=== PATIENT | male | born 1980 | race Caucasian/White ===

== ENCOUNTER 2019-08-16 13:36 | Outpatient (CLI) | payer OTHER ==
--- NOTE | 2019-08-16 17:00 | CARDIAC PROCEDURE NOTE ---
DATE OF SERVICE: 08/16/2019 Physician: Lamar Brandon MD, [facility] INDICATION: Chest pain. CARDIAC RISK FACTORS: Male gender, family history of heart disease at an early age, elevated cholesterol, obesity, hypertension. DESCRIPTION OF PROCEDURE: After signing informed consent, patient underwent a Eben-protocol treadmill stress test. No imaging was ordered with this test. RESTING HEART RATE: 100. PEAK HEART RATE 162 (90% predicted maximum heart rate for age). RESTING BLOOD PRESSURE: 142/90. PEAK BLOOD PRESSURE: 198/60. Patient exercised for 8 minutes and 40 seconds on a Eben-protocol treadmill stress test. He achieved a peak heart rate of 162 (90% predicted maximum heart rate for age) and 10.2 METS. Patient developed mild to moderate shortness of breath and rated his perceived exertion at 13/20 on a Eboni scale, at peak. He described no chest discomfort during the entire test. Oxygen saturation was 94- 98% throughout the entire test, on room air. RESTING EKG: Normal sinus rhythm, poor R-wave progression in V1-V4 precordial leads. EKG AT PEAK: No new ST segment or T-wave changes. Heart rate was slow to recover, at 4 minutes aftyer exercise, he was still tachycardic at a heart rate of 113. SUMMARY 1. Abnormal resting EKG. 2. Fair exercise tolerance. 3. Abnormal heart rate during the entire test: Tachycardic at rest and slow recovery of heart rate after exercise. 4. No ischemic changes by EKG criteria with exercise stress testing, at a good level of exertion. 5. No imaging was ordered with this test (to evaluate the abnormal resting EKG). 6. This patient's cardiac risk is Moderate. 7. Consider repeat stress testing using imaging (nuclear or Echo) to evaluate for ischemia, if clinically indicated. cc: Abhay Bowsre TD: 08/16/2019 16:07 GATO
== END 2019-08-16 13:37 | disposition home or self-care (01) ==
LOC: DI 13:36
DX: R07.9 Chest pain, unspecified (principal)

== ENCOUNTER 2021-10-22 10:58 | Outpatient (CLI) | payer OTHER ==
[2021-10-22 11:47] VITALS: BP 134/84
--- NOTE | 2021-10-22 11:47 | SLEEP CARE CONSULTATION ---
Information from patient questionnaire entered by Ariadne Clay MA. I have reviewed and concur with the information entered by Ariadne Clay MA. This document represents the service I personally performed and the decisions made by me, Vanessa Sheffield ARNP. History of Present Illness Service Date and Time: 10/22/2021 1058 Reason for Visit: New patient Chief Complaint: reports: Unrefreshed sleep (eugenia when sleeping on his back), Snoring, Observed pauses in breathing, Frequent awakenings at night Date of Onset: multiple years Usual bedtime: 2200 Time it takes to fall asleep: 30-45 minutes Snores at night: Yes Observed to quit breathing while asleep: Yes Sleeps alone due to snoring: No Number of times waking at night: 5-6 Reasons for waking at night: reports: Snoring, Pain, Other (shoulder site pain) Toss, Turn, or Twitch while sleeping: Yes Recalls having dreams: Yes Usually gets out of bed at: 0700; weekends 730-0800 Feels refreshed in the morning: No Morning headache: No Sleepy or fatigued during the day: Yes Ever fallen asleep while driving: Yes (drowsy driving, no accidents) Takes day naps: No Dreams during day naps: No Prior sleep studies: No Additional HPI information: I had the pleasure of seeing RYAN ROJAS today regarding the possibility of him having a sleep disorder. His current complaints are snoring, observed pauses in breathing, frequent night awakenings and unrefreshed sleep. Patient states he is here because his has been complaining for years of his snoring and times that he has pauses in breathing when he sleeps. He is also had times where she heard gasping while he was sleeping. He visited with his primary doctor who sent him here for evaluation. He states he does wake up frequently for many reasons during the night. He normally sleeps on his sides but would like to sleep on his back. He states he cannot sleep on his back because he wakes up every 10 minutes choking and snoring. He states now he is having more back pain from sl eeping on his side and he would like to sleep on his back. He was lifting weights as a teenager and crashed some vertebrae for which he had surgery. But as he is getting older he is having more pain in his back. He states he does not have high blood pressure but it has been borderline high for the last couple of years. He is not currently on any medication for high blood pressure. He comes from a family of snores but no diagnosed sleep disordered breathing. 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 Patient is and lives in [place]. Have you smoked in the past 12 months: No Alcohol use: Yes Alcohol amount and frequency: 3 x weekly Caffeine use: Yes Caffeine amount and frequency: 3 x weekly Family History Family history of sleep disordered breathing: No Family Hx Sleep Apnea: Mother: Snoring, Father: Snoring, Sibling: Snoring Allergies and Home Medications Known drug allergies: No Drug allergies reviewed: Yes (NKDA) Home medication list reviewed: Yes Allergy and home medication list: Simvastatin 40 mg daily Advil PM, prn (few times a week to help stay asleep) Review of Systems Cardiovascular: denies: high blood pressure Gastrointestinal: reports: diarrhea. denies: heartburn Neurological: denies: headaches Psychiatric: reports: depression Ear/Nose/Throat: reports: injury to nose (possible nose fracture when kid), wisdom teeth removed. denies: tonsillectomy Musculoskeletal: reports: neck pain, back pain Immunologic: denies: allergies to food or environment Physical Exam Vital signs obtained and entered by: MILE STEWART Blood Pressure: 134/84 (left) Cuff size: wrist Heart Rate: 67 O2 Saturation: 98 (with mask) Height: 6 ft 1 in Weight: 270 lb (with boots and uniform) Body Mass Index: 35.6 BMI Classification: Obese Neck circumference: 18 (inches) Mouth and throat: narrow oropharynx Soft palate: long Hard palate: normal Uvula: normal Uvula visualization: 25% Mallampati Class III Tonsils: small Neck: normal w/o lymphadenopathy or thyromegaly Heart: regular rate and rhythm Lungs: clear bilaterally Impression and Plan 1. Suspected Obstructive Sleep Apnea-Hypopnea Syndrome, as suggested by a history of loud and irregular snoring, observed cessation of breath while asleep, gasping or choking in sleep, frequent awakening during the night, and unrefreshed sleep. Narrow oropharynx and obesity are common predisposing factors for obstructive sleep apnea-hypopnea syndrome. I recommend proceeding to polysomnography to confirm the diagnosis and to assess severity. If the patient has significant sleep disordered breathing, a manual CPAP titration study will also be performed to find the optimal treatment pressure. I informed the patient of what the sleep studies involve and after some discussion, obtained agreement to proceed. The pathophysiology of obstructive sleep apnea-hypopnea syndrome was discussed with the patient and health risks of cardiovascular and cerebrovascular disease if not treated. AAS brochure for obstructive sleep apnea-hypopnea syndrome given and reviewed. 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 Patient agreed to plan. * Schedule polysomnography +- manual CPAP titration study and return in 1-2 weeks after the study to discuss result and initiate therapy. * Avoid long distance driving or driving when feeling sleepy. * Avoid alcohol, sedative and muscle relaxant around bedtime. * Attempt to lose weight. * Review instructions provided by trained office staff on how to prepare for the sleep study. * Return for follow-up after sleep study completed. Counseling Topics: Weight loss health impact Visit Type: In Office Time Spent with Patient (minutes): 30 Provider Statement: I spent 100% of the Face to Face Visit with the patient with greater than 50% spent counseling the patient and coordination of care.
== END 2021-10-22 10:59 | disposition home or self-care (01) ==
LOC: SC 10:58
PROVIDERS: ATTEND Nurse Practitioner Family
DX: R06.83 Snoring (principal); R06.81 Apnea, not elsewhere classified; G47.8 Other sleep disorders; E66.9 Obesity, unspecified; Z68.35 Body mass index [BMI] 35.0-35.9, adult
CPT/HCPCS: 99203; 99212

== ENCOUNTER 2021-11-21 09:19 | Outpatient (CLI) | payer OTHER | END 2021-11-21 09:20 | disposition home or self-care (01) | LOC: SC 09:19 | PROVIDERS: ATTEND Nurse Practitioner Family | DX: Z53.9 Procedure and treatment not carried out, unspecified reason (principal) ==

== ENCOUNTER 2021-11-24 08:30 | Outpatient (CLI) | payer OTHER | END 2021-11-24 08:31 | disposition home or self-care (01) | LOC: SC 08:30 | PROVIDERS: ATTEND Nurse Practitioner Family | DX: G47.33 Obstructive sleep apnea (adult) (pediatric) (principal); R09.02 Hypoxemia | CPT/HCPCS: 95806 ==

== ENCOUNTER 2021-12-04 11:16 | Outpatient (CLI) | payer OTHER ==
--- NOTE | 2021-12-04 12:10 | SLEEP CARE CONSULTATION ---
Information from patient questionnaire entered by Ariadne Deshpande MA. I have reviewed and concur with the information entered by Ariadne Deshpande MA. This document represents the service I personally performed and the decisions made by , Vanessa Sheffield ARNP. History of Present Illness Service Date and Time: 12/04/2021 1116 Initial [place] Sleepiness Scale score: 12 (2020) Current [place] Sleepiness Scale score: 13 (2021) Additional HPI information: RYAN ROJAS returns for follow up and results of the recently performed home sleep study. I explained the pathophysiology behind obstructive sleep apnea. We then spent quite a bit of time discussing different treatment options. For mild obstructive sleep apnea, surgery and oral appliance are alternatives to nasal CPAP therapy but in moderate or severe cases, nasal CPAP is the most effective and reliable treatment. I reviewed the impact of weight changes on sleep apnea and strongly recommended losing weight. After some discussion, the patient opted to go with the nasal CP AP therapy. Nasal autoCPAP set at 4-15 cmH20 will be ordered with rationale explained. A manual titration study will be ordered if unable to find optimal pressure with office adjustments. I explained how CPAP machine works and what to expect when using the machine. Using CPAP every night in order to get used to it was emphasized. Patient advised to put CPAP mask on before getting into bed so as not to fall asleep without CPAP. To assist acclimation to CPAP use, it could also be used for a short time during day while reading or watching TV. The patient was instructed to call the CPAP supplier to discuss any mechanical problem that may occur. If the mask given is uncomfortable or is difficult to keep on through the night even with adjustment, contact the CPAP supplier as many will replace with another mask style if notified before 30 days. If snoring or perceives is not getting enough air or too much air from the machine, notify this office. AASM patient education PAP tips reviewed and given to patient. Patient counseled not drink alcohol less than 4 hours before bedtime as it can increase snoring and apnea. Patient was cautioned about risks of drowsy driving until sleepiness symptoms resolve. Sleep Study - Results Prior sleep studies: No Polysomnography/Home Sleep Study results: Physician Impression: The quality of the study is fair due to partial loss of airflow signal.. The length of the study is adequate (> 240 minutes). Please also see the tabulated and graphic data. 1. Obstructive Sleep Apnea-Hypopnea (ICD-10 G47.33), severe, with an AHI of 41.9/hr and vanesa SaO2 of 76%. During the study, the patient had 66 apneas (66 obstructive, 0 central, 0 mixed) and 35 hypopneas. The longest episode lasted 90.0 seconds. The respiratory events occurred independently of body position (supine AHI was 41.7 and non-supine, 42.03). 2. Hypoxemia (ICD-10 R09.02), moderate, with the lowest oxygen saturation of 76 % and 134.2 minutes with SaO2 under 90%. Baseline oxygen saturation was normal (Average oxygen saturation was 91%). Allergies and Home Medications Known drug allergies: No Drug allergies reviewed: Yes Home medication list reviewed: Yes (no changes) Review of Systems Review of systems same as previous: Yes (no changes) Physical Exam Vital signs obtained and entered by: Jerome DESHPANDE CMA AAYEN Blood Pressure: 70/46 (RIGHT, PULSE 86, LOW BP IS HIS NORMAL) Heart Rate: 91 O2 Saturation: 97 (WITH N95) Height: 6 ft 1 in Weight: 268 lb (W/O [id number]) Body Mass Index: 35.3 BMI Classification: Obese Impression and Plan 1. Obstructive Sleep Apnea-Hypopnea Syndrome, severe, with lowest oxygen saturation of 76%. Obviously this is the cause of the patients symptoms of unrefreshed sleep, and excessive daytime sleepiness. Positive pressure therapy could benefit depression. As mentioned above, the patient will be started on nasal autoCPAP therapy with pressure set at 4-15 cmH2O. A manual titration study will be completed if unable to find optimal treatment pressure with office adjustments. Compliance guidelines also reviewed. A copy of compliance guidelines will be given for reference at check out. 2. Hypoxemia, moderate, with the lowest oxygen saturation of 76 % and 134.2 minutes with SaO2 under 90%. His baseline oxygen saturation was normal with an average oxygen saturation of 91%. * Nasal auto CPAP therapy, pressure at 4-15 cm H2O. * Attempt to lose weight. * Avoid alcohol consumption near bedtime. * Avoid supine sleep until using CPAP. * The patient is again cautioned about driving until sleepiness completely resolves. * Return one month after CPAP obtained. I will assess response to therapy and compliance at that time. Counseling Topics: Weight loss health impact Visit Type: In Office Time Spent with Patient (minutes): 23 Provider Statement: I spent 100% of the Face to Face Visit with the patient with greater than 50% spent counseling the patient and coordination of care.
[2021-12-04 12:11] VITALS: BP 70/46
== END 2021-12-04 11:17 | disposition home or self-care (01) ==
LOC: SC 11:16
PROVIDERS: ATTEND Nurse Practitioner Family
DX: G47.33 Obstructive sleep apnea (adult) (pediatric) (principal); R09.02 Hypoxemia; E66.9 Obesity, unspecified; Z68.35 Body mass index [BMI] 35.0-35.9, adult
CPT/HCPCS: 99212; 99213

== ENCOUNTER 2021-12-09 07:37 | Outpatient (CLI) | payer OTHER ==
--- NOTE | 2021-12-09 09:43 | XRAY Report ---
PROCEDURE: Foot 3 View LT INDICATIONS: L FOOT PX TECHNIQUE: 3 views of the foot were acquired. COMPARISON: None FINDINGS: Bones: No acute fractures or dislocations. No suspicious bony lesions. Soft tissues: There is soft tissue swelling of the left forefoot and more focal soft tissue swelling adjacent to the lateral aspect of the left foot at the level of the fifth metatarsal. No tibiotalar joint effusion. Achilles tendon appears normal. IMPRESSION: Soft tissue swelling of the lateral left foot and left forefoot without underlying fracture or disloc ation. If there is persistent clinical concern for a radiographically occult fracture, recommend immobilizat ion and repeat imaging in 10 to 14 days. Reviewed by: Juan F Talamantes MD on 12/09/2021 9:41 AM PST Approved by: Juan F Talamantes MD on 12/09/2021 9:41 AM PST Station ID: [id number]
== END 2021-12-09 23:59 | disposition home or self-care (01) ==
LOC: DI.N 07:37
PROVIDERS: ATTEND Family Medicine
DX: R93.6 Abnormal findings on diagnostic imaging of limbs (principal); R93.89 Abnormal findings on diagnostic imaging of other specified body structures